=== PATIENT | male | born 1960 | race Hispanic/Latino ===

== ENCOUNTER 2017-08-17 20:41 | Inpatient (IN) | payer OTHER ==
[2017-08-17 20:44] VITALS: BMI 34.7
--- NOTE | 2017-08-17 21:53 | C.PDOC ---
History Of Present Illness 56 year old male with a Hx of HTN, COPD, schizophrenia, and chronic ETOH on xanax and HTN medication presents to the ER as a transfer for psych admission. Patient had a suicide attempt on 07/21/17 by drinking antifreeze after his past, his daughter also past within 6 days of his 's passing from possible drug overdose. Patient denies any physical complaints at this time. Time Seen by Provider: 08/17/17 21:09 Chief Complaint (Nursing): Medical Clearance History Per: Patient History/Exam Limitations: no limitations Onset/Duration Of Symptoms: Days Current Symptoms Are (Timing): Still Present Severity: None Reports Recently: Hospitalized Recent travel outside of the [place]: No Past Medical History Reviewed: Historical Data, Nursing Documentation, Vital Signs Vital Signs: Last Vital Signs Temp 98.8 F 08/17/17 20:49 Pulse 70 08/17/17 20:49 Resp 18 08/17/17 22:27 BP 130/87 08/17/17 20:49 Pulse Ox 96 08/17/17 22:06 - Medical History PMH: Anxiety, COPD, Depression, Fractures (ANKLE,LE ARM FX), HTN, Paranoia, Schizophrenia Surgical History: No Surg Hx - [facility] Procedures APPLICATION OF SPLINT (10/20/13) ASSISTANCE WITH RESPIRATORY VENTILATION, 24-96 HRS, CPAP (03/29/16) C-VASC SCAN/ISOTOP FUNCT (09/09/99) CORONAR ARTERIOGR-2 CATH (09/09/99) DX ULTRASOUND-HEART (09/09/99) INTRODUCE OF OTH THERAP SUBST INTO RESP TRACT, VIA OPENING (09/25/16) LEFT HEART CARDIAC CATH (09/09/99) LT HEART ANGIOCARDIOGRAM (09/09/99) PSYCHIAT DRUG THERAP NEC (01/18/05) TREADMILL STRESS TEST (09/09/99) Family History: States: Unknown Family Hx - Social History Hx Tobacco Use: No Hx Alcohol Use: Yes (DRINKS VODKA.LAST DRANK YESTERDAY,UNDISCLOSED AMOUNT.) Hx Substance Use: Yes (TRIED MARIJUANA WHEN HE WAS IN HIS 20'S) Review Of Systems Constitutional: Negative for: Fever, Chills, Weakness, Malaise, Weight loss Eyes: Negative for: Pain, Vision Change ENT: Negative for: Ear Pain Cardiovascular: Negative for: Chest Pain, Palpitations, Orthopnea, Paroxysmal Noc. Dyspnea, Edema Respiratory: Positive for: Shortness of Breath. Negative for: Cough, Hemoptysis , SOB with Excertion, Pleuritic Pain, Sputum, Wheezing Gastrointestinal: Negative for: Nausea, Vomiting, Diarrhea, Constipation Genitourinary: Negative for: Dysuria, Hematuria Musculoskeletal: Negative for: Neck Pain, Back Pain Skin: Negative for: Rash Neurological: Negative for: Weakness, Confusion Psych: Positive for: Suicidal ideation Physical Exam - Physical Exam Appears: Non-toxic, No Acute Distress Skin: Normal Color, Warm, Dry Head: Atraumatic, Normacephalic Eye(s): bilateral: Normal Inspection Oral Mucosa: Moist Tongue: Normal Appearing Lips: Normal Appearing Teeth: Normal Dentition Gingiva: Normal Appearing Throat: Normal Neck: Normal Chest: Symmetrical, No Tenderness Cardiovascular: Rhythm Regular Respiratory: Normal Breath Sounds, No Rales, No Rhonchi, No Wheezing Gastrointestinal/Abdominal: Soft, No Tenderness Back: Normal Inspection Extremity: Normal ROM Neurological/Psych: Oriented x3, Normal Speech ED Course And Treatment O2 Sat by Pulse Oximetry: 96 (Room air) Pulse Ox Interpretation: Normal Medical Decision Making Medical Decision Making: Patient's vitals are stable and he is in no distress, ready for psych admission / patietn in medically cleared. Disposition - Disposition Disposition: Trans to Other Acute Care Hosp Disposition Time: 12:00 Condition: GOOD - Clinical Impression Clinical Impression: Major depression, Suicidal overdose - Scribe Statement The provider has reviewed the documentation as recorded by the Scribsita Hernadez All medical record entries made by the Ericibsita were at my direction and personally dictated by me. I have reviewed the chart and agree that the record accurately reflects my personal performance of the history, physical exam, medical decision making, and the department course for this patient. I have also personally directed, reviewed, and agree with the discharge instructions and disposition.
--- NOTE | 2017-08-17 21:54 | PCM.BM ---
<Jose Martin Betancourt - Last Filed: 08/17/17 21:51> Treatment Plan Problems - Problems identified on initial assessmt Depression Date Initiated: 08/17/17 Time Initiated: 21:52 Assessment reference: NA Status: Active Suicidal Ideations Date Initiated: 08/17/17 Time Initiated: 21:52 Assessment reference: NA Status: Active Anxiety Date Initiated: 08/17/17 Time Initiated: 21:52 Assessment reference: NA Status: Active Treatment assets and liabiliti Patient Assests: adapts well, cooperative, ADL independent, good support system (Daugthers), negotiates basic needs Patient Liabilities: substance abuse (Alcohol and Xanax), medical problems ( Hypertension) - Milieu Protocol Maintain good personal hygiene: daily Encourage regular showers, every shift Remind patient to perform daily oral care, every shift Assist patient to perform ADL's Conduct patient checks and document Observation sheet: Q15 minutes (For safety) Maintain personal safety: every shift Educate patient to report safety concerns to staff, every shift Monitor environment for contraband/sharps Medication safety: Monitor for expected outcome, potential side effects: every shift, Assess barriers to learning: every shift, Assess readiness for medication education: every shift <Estrellita Troncoso - Last Filed: 08/19/17 23:53> - Diagnosis (1) Major depression Status: Acute Interventions: 08/19/17 23:53 * Assess/adjust medications daily and /or as needed * See patient on an individual basis 7x/week to assess symptoms of depression * Monitor for side effects & effectiveness of medications * (2) Alcohol intoxication Status: Acute Interventions: 08/19/17 23:54 * Assess 7x/week regarding severity of withdrawal * Educate regarding risks, benefits, side effects and alternatives of medications * Use Motivational Interviewing for abstinence * Use CBT for relapse prevention * Medication management for withdrawal symptoms * Encourage medication assisted treatment * <Kayla Bess - Last Filed: 08/21/17 11:10> Family Contact Family involvement: Family/SO is involved Family contact: Patient declines to allow family contact at present - Goals for Treatment Patient goals for treatment: "I need to go home." Discharge/Continuing Care - Education Needs Education Needs: Patient Medication, Patient Coping Skills - Discharge Discharge Criteria: Tolerates medication w/o severe side effects, No longer exhibiting s/s of withdrawal, Reduction of target symptoms Discharge to:: Home - Treatment Team Participation Discussed with Family/SO: No Was Patient/Family/SO present at Treatment Team Meeting: Yes
[2017-08-18 07:43] VITALS: RESP 20
[2017-08-18] MEDS: Multiple Vitamins Tab PO SCH (10:17)
--- NOTE | 2017-08-18 12:31 | PCM.PSYCH ---
Initial Psychiatric Evaluation - Initial Psychiatric Evaluation Type of Admission: Voluntary Legal Status: Capacity Chief Complaint (in patient's own words): "I just want to get out of here and get back to my life" History of Present Illness and Precipitating Events: The pt is seen, chart reviewed, case discussed with staff Pt is 56 y/o male who was transferred from [facility]. He was brought to the [place] ED for Depression, suicidal ideations, and suicide attempt on 07/21/17. Pt reportedly drank antifreeze. Pt recently experienced the of his and daughter. Pt reported that he was feeling depressed but denies feelings of hopelessness. He reports feeling anxious about daily tasks and chores. Pt reports that he does have racing thoughts. Pt denies auditory and visual hallucinations. Pt reports that he drinks 6 8oz cans of beer on the weekends. Pt denies any other illicit drug use. Pt reports that he did not sleep well but he states that he has always been a bad sleeper since he was a child. Pt denies auditory and visual hallucinations. Pt denies feelings of paranoia. Pt appears slightly disheveled and depressed with appropriate affect and speech pattern. He also reports racing of thoughts, flights of ideas, and irritability. PAST MHX: COPD, HTN Current Medications: Active Medications Generic Name Dose Route Start Last Admin Trade Name Don PRN Reason Stop Dose Admin Clonidine HCl 0.1 mg 08/17/17 22:33 Catapres PO Q4H PRN Symptoms of alcohol withdrawl Folic Acid 1 mg 08/18/17 10:00 08/18/17 10:17 Folic Acid PO 1 mg DAILY KAVYA Administration Hydroxyzine HCl 25 mg 08/17/17 22:33 08/18/17 10:24 Atarax PO 25 mg Q6 PRN Administration Anxiety Multivitamins 1 tab 08/18/17 10:00 08/18/17 10:17 Hexavitamin PO 1 tab DAILY KAVYA Administration Ondansetron HCl 4 mg 08/17/17 22:33 Zofran Tab PO Q8H PRN Nausea/Vomiting Pneumococcal Polyvalent Vaccine 0.5 ml 08/19/17 10:00 Pneumovax 23 Vaccine IM 08/19/17 10:01 .ONCE ONE Quetiapine Fumarate 75 mg 08/17/17 23:00 08/17/17 22:52 Seroquel PO 75 mg HS KAVYA Administration Thiamine HCl 100 mg 08/18/17 10:00 08/18/17 10:17 Vitamin B1 Tab PO 100 mg DAILY KAVYA Administration Trazodone HCl 50 mg 08/17/17 22:33 08/17/17 22:47 Desyrel PO 50 mg HS PRN Administration Insomnia Past Psychiatric History - Past Psychiatric History Previous Treatment History: None Pertinent Medical Hx (Current Medical&Sleep Prob, Allergies): Allergies Allergy/AdvReac Type Severity Reaction Status Date / Time No Known Allergies Allergy Verified 08/11/17 13:55 Famotidine [Pepcid] 20 mg PO DAILY tab 08/17/17 Folic Acid 1 mg PO DAILY tab 08/17/17 LORazepam [Ativan] 1 mg PO Q6 PRN tab 08/17/17 Multivitamin Therapeutic Tab [Thera Tab] 1 tab PO 0800 tab 08/17/17 Ondansetron [Zofran Tab] 4 mg PO Q8H PRN tab 08/17/17 QUEtiapine [Seroquel] 25 mg PO HS PRN tab 08/17/17 QUEtiapine [Seroquel] 75 mg PO HS tab 08/17/17 Thiamine [Vitamin B1 Tab] 100 mg PO DAILY tab 08/17/17 Review of Systems - Review of Systems All systems: reviewed and no additional remarkable complaints except - Psychiatric Psychiatric: Abnormal Sleep Pattern, Anxiety, Change in Appetite, Depression, Difficulty Concentrating, Irritability, Suicidal Ideation Mental Status Examination - Personal Presentation Personal Presentation: Looks stated age - Affect Affect: Constricted, Depressed - Motor Activity Motor Activity: Calm - Reliability in Providing Information Reliability in Providing Information: Fair - Speech Speech: Organized - Mood Mood: Depressed, Anxious - Formal Thought Process Formal Thought Process: Flight of ideas, Circumstantial - Obsessions/Compulsions Obsessions: No Compulsions: No - Cognitive Functions Orientation: Person, Place, Situation, Time Sensorium: Alert Attention/Concentration: Attentive Judgement: Imparied, as evidence by: Poor judgement, Imparied, as evidence by: Lack of insight into illness Memory: Remote intact, as evidenced by: Ability to recall historical events - Risk Risk: Suicidal, Diminished functioning - Strength & Assets Inventory Strength & Assets Inventory: Life experience - Limitations Limitations: Living alone DSM 5 DX - DSM 5 DSM 5 Diagnosis: Bipolar disorder depressed severe without psychotic features Alcohol use disorder moderate - Recommended/Plan of Treatment Treatment Recommendations and Plan of Treatment: Bipolar disorder depressed severe without psychotic features CBT Psychoeducation Supportive therapy, group therapy, individual therapy Depakote 250 mg PO BID Neurontin 300 mg by mouth 2 times a day Seroquel 100 mg PO QHS Trazodone 50 mg by mouth daily at bedtime Alcohol use disorder moderate CBT Psychoeducation Supportive therapy, individual therapy Use [place] for abstinence - Smoking Cessation Smoking Cessation Initiated: No
[2017-08-18] MEDS: Divalproex 250 mg DR Tab PO SCH (18:30)
[2017-08-18] MEDS: Fluticasone-Salmeterol 250-50mcg Diskus INH SCH (21:35)
[2017-08-19] MEDS ORDERED: MULTIVITAMIN THERAPEUTIC PO SCH (08:00)
[2017-08-19] MEDS: Fluticasone-Salmeterol 250-50mcg Diskus INH SCH ×2 (08:44→20:19)
[2017-08-19] MEDS: Divalproex 250 mg DR Tab PO SCH ×2 (09:04→18:03)
[2017-08-19] MEDS: Multiple Vitamins Tab PO SCH (09:04)
[2017-08-19] MEDS ORDERED: Pneumococcal 23-Valent Vaccine IM ONE (10:00)
[2017-08-19] MEDS ORDERED: Influenza Vaccine 60 mcg/0.5 mL SYR (4YR UP) IM ONE (10:00)
--- NOTE | 2017-08-19 10:42 | PCM.PYCHPN ---
Psychiatric Progress Note - Psychiatric Progress Note Patient seen today, length of contact: 16 minutes Patient Chief Complaint: "I'm good, just want to get back to it" Problems Identified/Issues Discussed: This patient was seen, chart reviewed, and case discussed with staff. Pt has appropriate affect and slightly slurred speech pattern. Pt appears in good spirits and is interacting with staff and other patients. Today, he reports a decrease in intensity of the feelings of depression and hopelessness. Pt denies suicidal ideation and homicidal ideations. Pt reports his appetite and sleep are normal. Pt denies feelings of paranoia and anxiety. Pt denies auditory and visual hallucinations. Pt has been attending groups. Patient is compliant with medications and denies any side effects. Symptoms are improving but need more time to stabilize. Support and psychoeducation given. Medication Change: Yes (d/c neurontin, d/c trazodone) Medical Record Reviewed: Yes Mental Status Examination - Cognitive Function Orientation: Person, Place, Situation, Time Attention: WNL Concentration: Poor Association: WNL Fund of Knowledge: Poor - Mood Mood: Depressed, Anxious - Affect Affect: Broad - Speech Speech: Slurred - Formal Thought Process Formal Thought Process: Circumstantial - Suicidal Ideation Suicidal Ideation: No - Homicidal Ideation Homicidal Ideation: No Goal/Treatment Plan - Goal/Treatment Plan Need for Continued Stay: Discharge may exacerbated symptoms, Severe functional impairment Progress Toward Problem(s) and Goals/Treatment Plan: Bipolar disorder depressed severe without psychotic features CBT Psychoeducation Supportive therapy, group therapy, individual therapy Depakote 250 mg PO BID d/c Neurontin 300 mg by mouth 2 times a day Seroquel 100 mg PO QHS d/c Trazodone 50 mg by mouth daily at bedtime Alcohol use disorder moderate CBT Psychoeducation Supportive therapy, individual therapy Use [place] for abstinence - Smoking Cessation Smoking Cessation Initiated: No
[2017-08-20] MEDS: Fluticasone-Salmeterol 250-50mcg Diskus INH SCH ×2 (08:13→20:10)
[2017-08-20] MEDS: Multiple Vitamins Tab PO SCH (09:11)
[2017-08-20] MEDS: Divalproex 250 mg DR Tab PO SCH (09:11)
--- NOTE | 2017-08-20 11:03 | PCM.PYCHPN ---
Psychiatric Progress Note - Psychiatric Progress Note Patient seen today, length of contact: 16 minutes Patient Chief Complaint: "I'm better" Problems Identified/Issues Discussed: This patient was seen, chart reviewed, and case discussed with staff. Pt reports improvement in his mood and denies feelings of hopelessness. Pt denies suicidal ideation and homicidal ideations. Pt reports his appetite and sleep are normal. Pt denies feelings of paranoia and anxiety. Pt denies auditory and visual hallucinations. Pt has been attending groups. Pt reports medication iare qorking and denies any drowsiness or any other side effects. Patient is compliant with medications. Symptoms are improving but need more time to stabilize. Support and psychoeducation given. Medication Change: Yes (change depakote) Medical Record Reviewed: Yes Mental Status Examination - Cognitive Function Orientation: Person, Place, Situation, Time Attention: WNL Concentration: WNL Association: WNL Fund of Knowledge: WNL - Mood Mood: Neutral - Affect Affect: Constricted - Speech Speech: Appropriate, Soft - Formal Thought Process Formal Thought Process: No Impairment - Suicidal Ideation Suicidal Ideation: No - Homicidal Ideation Homicidal Ideation: No Goal/Treatment Plan - Goal/Treatment Plan Need for Continued Stay: Discharge may exacerbated symptoms, Severe functional impairment Progress Toward Problem(s) and Goals/Treatment Plan: Bipolar disorder depressed severe without psychotic features CBT Psychoeducation Supportive therapy, group therapy, individual therapy Depakote 250 mg PO QHS Seroquel 100 mg PO QHS Alcohol use disorder moderate CBT Psychoeducation Supportive therapy, individual therapy Use [place] for abstinence - Smoking Cessation Smoking Cessation Initiated: No
[2017-08-20] MEDS ORDERED: Divalproex 250 mg DR Tab PO SCH (18:00)
[2017-08-21] MEDS ORDERED: Albuterol 0.083% Inhal Sol (2.5 mg/3 mL) UD INH PRN (06:35)
[2017-08-21] MEDS ORDERED: Albuterol HFA 90 mcg/actuation (8 g) INH PRN (06:41)
[2017-08-21] MEDS: Fluticasone-Salmeterol 250-50mcg Diskus INH SCH (08:00)
[2017-08-21] MEDS: Multiple Vitamins Tab PO SCH (09:54)
--- NOTE | 2017-08-21 09:58 | PCM.PYCHDC ---
Mental Status Examination - Mental Status Examination Orientation: Person, Place, Situation, Time Memory: Intact Mood: Neutral Affect: Constricted Speech: Soft Attention: WNL Concentration: WNL Association: WNL Fund of Knowledge: WNL Formal Thought Process: No Impairment Description of patient's judgement and insight: good, fair Psychotic Thoughts and Behaviors: denies any AVH Suicidal Ideation: No Current Homicidal Ideation?: No Discharge Summary - Discharge Note Reason for Hospitalization: The pt is seen, chart reviewed, case discussed with staff Pt is 56 y/o male who was transferred from [facility]. He was brought to the [place] ED for Depression, suicidal ideations, and suicide attempt on 07/21/17. Pt reportedly drank antifreeze. Pt recently experienced the of his and daughter. Pt reported that he was feeling depressed but denies feelings of hopelessness. He reports feeling anxious about daily tasks and chores. Pt reports that he does have racing thoughts. Pt denies auditory and visual hallucinations. Pt reports that he drinks 6 8oz cans of beer on the weekends. Pt denies any other illicit drug use. Pt reports that he did not sleep well but he states that he has always been a bad sleeper since he was a child. Pt denies auditory and visual hallucinations. Pt denies feelings of paranoia. Pt appears slightly disheveled and depressed with appropriate affect and speech pattern. He also reports racing of thoughts, flights of ideas, and irritability. Consultations:: List each consultation separately and include: 1. Reason for request. 2. Findings. 3. Follow-up Summary of Hospital Course include:: 1. Description of specific treatment plan utilized for patients during their course of treatmen. 2. Summarize the time- course for resolution of acute symptoms and/or regressed behaviors. 3. Describe issues identified and worked on during hospitalization. 4. Describe medication utilized. 5. Describe medical problems identified and treated. 6. Reassessment of suicide risk Summary of Hospital Course: During the course of his stay, patient (pt) started progressively improving and he no longer remained irritable, depressed, and suicidal. His mood and anxiety symptoms were improved and he started attending groups and meetings and started socializing. Patient denied any feelings of hopelessness, helplessness, and worthlessness, denied any problem with the sleep or appetite, denied suicidal ideation or homicidal ideation. Pt denied any auditory or visual hallucinations. Some changes were made in his current medications and patient was discharged on following medications. He tolerated these medications very well and denied any side effects. He was discharged to the [facility]. - Diagnosis (1) Major depression Status: Acute (2) Alcohol intoxication Status: Acute - Final Diagnosis (DSM 5) Condition upon Discharge: GOOD DSM 5: Bipolar disorder depressed severe without psychotic features Alcohol use disorder moderate Disposition: HOME/ ROUTINE Follow-up Treatment Plan: Education: Pt was educated and counseled about the risks and benefits of taking and not taking medications. Pt was educated and counseled about the risks of drinking and abusing drugs. Pt was educated and counseled to go to the ER or call 911 if pt develop suicidal ideation or homicidal ideation, worsening of symptoms or severe side effects of the meds. Prescriptions/Medication Reconciliation: Divalproex [Depakote DR] 250 mg PO QPM #30 tcp Multivitamins [Hexavitamin] 1 tab PO DAILY #30 tab QUEtiapine [Seroquel] 100 mg PO HS #30 tab - Smoking Cessation Smoking Cessation Medication prescribed: No - Antipsychotic Medications Pt discharged on 2 or more routine antipsychotic medications: No
[2017-08-21 11:42] VITALS: BP 114/79; PULSE 98; TEMP 98; O2SAT 99
== END 2017-08-21 11:50 | disposition home or self-care (01) | DRG 430 ==
LOC: C.ER 20:41 → C.5E 21:15
PROVIDERS: ADMIT Psychiatry & Neurology Psychiatry; ATTEND Psychiatry & Neurology Psychiatry
PROC: GZHZZZZ Group Psychotherapy (ICD-10-PCS; principal; 2017-08-17)
PROC: GZ58ZZZ Individual Psychotherapy, Cognitive-Behavioral (ICD-10-PCS; 2017-08-17)
PROC: GZ56ZZZ Individual Psychotherapy, Supportive (ICD-10-PCS; 2017-08-17)
DX: F31.4 Bipolar disorder, current episode depressed, severe, without psychotic features (principal); R45.851 Suicidal ideations; F20.9 Schizophrenia, unspecified; J44.9 Chronic obstructive pulmonary disease, unspecified; F10.129 Alcohol abuse with intoxication, unspecified; F41.9 Anxiety disorder, unspecified; Y90.9 Presence of alcohol in blood, level not specified